=== PATIENT | female | born 1965 | race Caucasian/White ===

== ENCOUNTER → 2016-08-03 | Outpatient (CLI) | payer OTHER ==
[2016-08-03 09:24] LABS: THYROID STIMULATING HORMONE 3.02 uIU/ml (0.34-5.60)
[2016-08-03 10:57] LABS: FREE THYROXIN (T4) 0.56 ng/dL (0.58-1.64)
[2016-08-03 11:20] LABS: FOLLICLE STIMULATING HORMONE 78.56 mIU/mL
[2016-08-03 11:21] LABS: LEUTINIZING HORMONE 24.87 mIU/mL
== END | disposition home or self-care (01) ==
LOC: SLAB 09:36
DX: E23.6 Other disorders of pituitary gland (principal)
CPT/HCPCS: 36415; 82533; 83001; 83002; 84305; 84439; 84443